=== PATIENT | female | born 1995 | race Caucasian/White ===

== ENCOUNTER 2019-01-23 20:15 | Emergency (ER) | payer MEDICAID, SELFPAY ==
[2019-01-23 20:21] VITALS: BP 99/56; PULSE 105; RESP 18; TEMP 36.8; O2SAT 99
--- NOTE | 2019-01-23 20:39 | W.ED.GENAD ---
Discharge Plan Disposition Patient Disposition: HOME Condition: Fair Discharge Details Chief Complaint: Abd Prob Clinical Impression: Gastroenteritis Primary Care Provider: Mera Cedeno ED Provider: Caitlyn Mendieta Home Meds and New Rx's Prescriptions: Continued oseltamivir [Tamiflu] 75 MG capsule 75 mg PO Q12H Qty: 9 RF: 0 ondansetron HCl [Zofran] 4 mg Tablet 4 mg PO QID PRNRF: 0 Discharge Instructions Instructions: Gastroenteritis (ED) Additional Instructions: Encourage hydration. Please continue with Tylenol as needed for discomfort. Please follow-up with primary care this week for reevaluation. If you develop fever/chills, inability to tolerate fluids, increased pain or the new/worsening symptoms please seek care urgently once again. Referrals: Mera Cedeno [Primary Care Provider] - Medical Decision Making Patient is a 23-year-old female, accompanied by significant other, with chief complaint of nausea, vomiting, dominant diarrhea, abdominal pain. She reports the pain is intermittent and occurs every half an hour. Reports that it feels like labor pains. States that the pain is fairly diffuse across the abdomen. She was seen at 2:00 this afternoon at [facility] emergency department patient was hydrated, given Zofran labs reviewed. Patient did not undergo imaging which is where she is concerned there is something more serious and abdominally was noted by them. Patient was diagnosed with gastritis per the report. Patient denies any recent travel. No recent antibiotics. Patient is not immunocompromised. On exam, patient appears nontoxic. Her abdomen is bening with no peritoneal findings. No tenderness on exam. Patient slightly tachycardic at 105. Discussed with the patient is diagnosed advised to continue with symptomatic management this time. However, patient is very concerned that there is more serious pathology given the severity of the pain. She reports that while her abdomen is benign at this time the pain greatly increases and she is particularly concerned about appendicitis. We discussed risk/benefits of imaging. I did discuss this in depth with the patient she feels very strongly that we should move forward with imaging at this time. Medical records from visit today at [place] were obtained. Patient was noted to have a white count of 14.6. She is not anemic. Sodium was normal, potassium was minimally low at 3.5. BUN 13, creatinine 1.48. Liver enzymes within normal limits. Anion gap slightly elevated at 13, lipase within normal range, qualitative hCG negative. Patient has large amount of ketones in the urine, large amount of RBCs. Patient is currently menstruating. Pain no bacteria were noted. Patient was diagnosed with gastritis and ODT Zofran was prescribed. She received 1 L of fluids. Patient also received Tylenol and Toradol and reported resolution of her symptoms at the time of discharge. This patient was evaluated for few hours ago, I do not feel that repeat laboratory evaluation is necessary. However, given the severity of the patient's discomfort, we will move forward with imaging. Patient I again, discussed the risk and benefits of CT imaging. She voiced understanding and wishes to proceed. Patient has been asymptomatic while here. No recurrence of N/V/D. No abdominal pain. CT reviewed by radiologist: FINDINGS: Liver: Normal. No mass. Gallbladder and bile ducts: Multiple small calcified gallstones. Pancreas: Normal. No ductal dilation. Spleen: Spleen is top normal in size. Adrenals: Normal. No mass. Kidneys and ureters: Normal. No hydronephrosis. Stomach and bowel: Fluid-filled top normal caliber small bowel loops in pelvis with air-fluid levels. Appendix: Appendix not demonstrated. Intraperitoneal space: There is a small amount of free intraperitoneal fluid present. No free intraperitoneal gas. Vasculature: Prominent periuterine veins bilaterally. Patent left renal vein without filling defects. It appears compressed between superior mesenteric artery and aorta. Prominent left gonadal vein. Main portal vein is normal in caliber without filling defects. Shape Lymph nodes: Scattered minimally prominent mesenteric lymph nodes in right lower quadrant and root of the mesentery. Bladder: Distended bladder. Reproductive: Intrauterine contraceptive device appears in satisfactory position. 2.6 cm left ovarian cyst. Bones/joints: No acute fracture. No dislocation. Soft tissues: Unremarkable. IMPRESSION: 1. Appendix not demonstrated. Ascites and prominent mesenteric lymph nodes may be axillary findings with the presence of appendicitis. 2. Pelvic congestion syndrome, at least in part due to compression of left renal vein between superior mesenteric artery and aorta. 3. Fluid-filled nondilated loops of bowel with air-fluid levels in pelvis, consistent with localized ileus. 4. Gallstones. 5. 2.6 cm left ovarian cyst. 6. Spleen is top normal in size. Discussed findings with Dr. Santos. Her physical exam and history is not consistent with appendiciits. She does not endorse pelvic pain at this time as would be expected with pelvic congestion syndrome. Discussed cyst with the patient. Dr. Santos advised that this is concsistent with her hx of gastroenteritis. Patient remains asymptomatic. Taking in fluids at this time. She will continue with the zofran as previously prescribed. Was given strict return precautions. Advised she f/u with PCP next week for reevaluation. All questions and concerns were addressed, she is in agreement with this plan. HPI General Mode of arrival: ambulatory. Date/Time Provider Initiated Documentation: 01/23/19 20:39. Limitations to Documentation: no limitations. Information obtained by: patient, family (significant other) and RN notes reviewed. History of Present Illness 23 year old F presents to the emergency department with the chief complaint of severe abdominal pain, N/V/D, described as severe, with intensity rated at 4. Quality is described as stabbing, and is localized to the abdomen. Patient reports no radiation. Patient started experiencing this hour(s) (0200) and it has been intermittent. No relieving factors improve symptom(s), No exacerbating factors reported . Patient notes loss of appetite and nausea/vomiting; denies chest pain, cough, fever/chills, headaches, rash and shortness of breath. Patient did receive the following treatments prior to arrival, other (zofran) Related Data Home Medications Medication Instructions Recorded Confirmed oseltamivir [Tamiflu] 75 mg PO Q12H #9 cap 09/02/17 ondansetron HCl [Zofran] 4 mg PO QID PRN 01/23/19 01/23/19 Previous Rx's Medication Instructions Recorded oseltamivir [Tamiflu] 75 mg PO Q12H #9 cap 09/02/17 Allergies Allergy/AdvReac Type Severity Reaction Status Date / Time No Known Allergies Allergy Unverified 01/23/19 20:23 General Stated Complaint: Abd Prob ALBERTO: 3 Review of Systems Constitutional Reports as per HPI, Denies chills, Denies fatigue, Denies fever(s) and Denies headache(s) ENT Denies headache(s) Cardiovascular Reports as per HPI, Denies chest pain and Denies dyspnea Respiratory Reports as per HPI, Denies cough and Denies dyspnea Gastrointestinal Reports as per HPI Genitourinary Reports system reviewed and no additional complaints, except as docu (no change in urination, patient currently menstruating) Musculoskeletal Reports as per HPI and Denies back pain Integumentary/Breasts Reports as per HPI and Denies rash Neurologic Reports as per HPI and Denies headache(s) Endocrine Denies fatigue [facility] Social History Smoking/Tobacco Use Status: Never Alcohol Intake: current Alcohol Intake frequency: a few times a week Drug use: Never Do you feel safe at home: Yes Do you feel safe in your relationship?: Yes Exam Const General: cooperative, healthy appearing, comfortable, no acute distress and well developed Nutritional Appearance: average body habitus and well nourished Orientation: alert and awake HENMT Head: normal to inspection Mouth: moist mucous membranes Resp Effort & Inspection: normal respiratory effort, able to speak in complete sentences and no respiratory distress Auscultation: clear to auscultation bilaterally, no rales, no rhonchi and no wheezes Cardio Rate: regular rate Rhythm: regular rhythm Heart Sounds: S1 normal and S2 normal GI Inspection: normal to inspection, no edema, non-distended, no incisions, no obesity and no visible herniation Palpation: soft, no hepatosplenomegaly, not firm, no guarding, not rigid and nontender Percussion: normal to percussion Auscultation: normal bowel sounds Back/Spine/Pelvis Back: no CVA tenderness Skin General skin exam: no rashes or lesions noted Trauma: no lacerations or abrasions Neuro General: alert and awake Cognition: normal cognition Speech: speech normal Gait: normal gait Psych Appearance: grossly normal and well kempt Mental Status: mental status grossly normal Speech and Movement: speech and movement normal Course Vital Signs Temperature 36.8 C 01/23/19 20:21 Pulse 105 H 01/23/19 20:21 Respiratory Rate 18 01/23/19 20:21 Blood Pressure 99/56 L 01/23/19 20:21 Pulse Oximetry 99 01/23/19 20:21 Temperature 36.8 C 01/23/19 20:21 Pulse 105 H 01/23/19 20:21 Respiratory Rate 18 01/23/19 20:21 Respiratory Effort Non-Labored 01/23/19 20:22 Blood Pressure 99/56 L 01/23/19 20:21 Blood Pressure Position Supine 01/23/19 20:21 Pulse Oximetry 99 01/23/19 20:21 Oxygen Delivery Method Room Air 01/23/19 20:21 Oxygen Flow Rate 0 01/23/19 20:21 Pain Level 4 01/23/19 20:26
--- NOTE | 2019-01-23 21:24 | DI.CT_ITS ---
SYMPTOM/DIAGNOSIS: NAUSEA, VOMITING, DIARRHEA, SEVERE DIFFUSE ABD PAIN ABDOMEN AND PELVIC CT: CT scan of the abdomen and pelvis was performed following the uneventful administration of intravenous contrast material. There are no priors for comparison. The lung bases are clear. There is no evidence of a hepatic mass. The portal, superior mesenteric and splenic veins are patent. There are stones seen within the gallbladder. No biliary ductal dilatation. The pancreas and adrenal glands are unremarkable. The spleen is at the upper limits of normal in size. The kidneys show normal and symmetric enhancement. No evidence of a solid renal mass or obstruction. The urinary bladder is intact. There are increased periuterine veins. The findings raise the question of pelvic congestion syndrome. The aorta is of normal caliber. No significant abdominal or pelvic adenopathy or pneumoperitoneum is seen. There is a small amount of free fluid in the pelvis. No focal fluid collection is seen to suggest an abscess. Note is made of a 3 cm. left adnexal cystic lesion, likely ovarian. The appendix is not visualized. There are mildly dilated loops of fluid filled small bowel likely reflecting an ileus. IMPRESSION: 1. Findings of mildly dilated loops of small bowel with air fluid levels suggesting an ileus. 2. Cholelithiasis. No biliary ductal dilatation. 3. 3 cm. left ovarian cyst. If further imaging is warranted, pelvic ultrasound may be obtained. 4. Distended periuterine vessels suggesting pelvic congestion syndrome. 5. Appendix not visualized.
[2019-01-23] MEDS: Omnipaque 350 MG/ML 100 ML BTL IJ (21:50)
[2019-01-23] MEDS: Normal Saline 1,000 ML 1000 ML IV (21:52)
--- NOTE | 2019-01-23 22:27 | DI.VRAD_ITS ---
EXAM: CT Abdomen and Pelvis With Contrast EXAM DATE/TIME: 01/23/2019 9:24 PM CLINICAL HISTORY: 23 years old, female; Abdominal pain; Generalized; Patient HX: N/v/d, severe diffuse abd pain TECHNIQUE: Imaging protocol: Axial computed tomography images of the abdomen and pelvis with intravenous contrast. Coronal and sagittal reformatted images were created and reviewed. COMPARISON: No relevant prior studies available. FINDINGS: Liver: Normal. No mass. Gallbladder and bile ducts: Multiple small calcified gallstones. Pancreas: Normal. No ductal dilation. Spleen: Spleen is top normal in size. Adrenals: Normal. No mass. Kidneys and ureters: Normal. No hydronephrosis. Stomach and bowel: Fluid-filled top normal caliber small bowel loops in pelvis with air-fluid levels. Appendix: Appendix not demonstrated. Intraperitoneal space: There is a small amount of free intraperitoneal fluid present. No free intraperitoneal gas. Vasculature: Prominent periuterine veins bilaterally. Patent left renal vein without filling defects. It appears compressed between superior mesenteric artery and aorta. Prominent left gonadal vein. Main portal vein is normal in caliber without filling defects. Shape Lymph nodes: Scattered minimally prominent mesenteric lymph nodes in right lower quadrant and root of the mesentery. Bladder: Distended bladder. Reproductive: Intrauterine contraceptive device appears in satisfactory position. 2.6 cm left ovarian cyst. Bones/joints: No acute fracture. No dislocation. Soft tissues: Unremarkable. IMPRESSION: 1. Appendix not demonstrated. Ascites and prominent mesenteric lymph nodes may be axillary findings with the presence of appendicitis. 2. Pelvic congestion syndrome, at least in part due to compression of left renal vein between superior mesenteric artery and aorta. 3. Fluid-filled nondilated loops of bowel with air-fluid levels in pelvis, consistent with localized ileus. 4. Gallstones. 5. 2.6 cm left ovarian cyst. 6. Spleen is top normal in size. Dictated and Authenticated by: Angelo Schulte MD. Ordering:FRANCIA Brady MD
[2019-01-23 23:05] VITALS: BP 101/56; PULSE 94; RESP 16; TEMP 37; O2SAT 96
== END 2019-01-23 23:05 | disposition home or self-care (01) ==
PROVIDERS: Emergency Provider Physician Assistant; PCP Physician Assistant Medical
DX: K52.9 Noninfective gastroenteritis and colitis, unspecified (principal); N83.202 Unspecified ovarian cyst, left side; K80.20 Calculus of gallbladder without cholecystitis without obstruction
CPT/HCPCS: 96360; 99285; 74177; 99284; J3490

== ENCOUNTER 2019-07-19 10:09 | Emergency (ER) | payer MEDICAID, SELFPAY ==
[2019-07-19 10:16] VITALS: BP 108/91; PULSE 68; RESP 24; TEMP 36.6; O2SAT 99
[2019-07-19] MEDS: Normal Saline Flush 10 ML SYR IVP (10:30)
[2019-07-19] MEDS: Normal Saline 1,000 ML 1000 ML IV ×3 (10:35→12:35)
[2019-07-19] MEDS: Ondansetron 4 MG/2 ML VIAL (10:40)
--- NOTE | 2019-07-19 10:45 | ED.GENADUL_ITS ---
Discharge Plan Disposition Patient Disposition: HOME Condition: Stable Discharge Details Chief Complaint: Nausea/Vomit/Diar Clinical Impression: Gastroenteritis Primary Care Provider: Mera Cedeno ED Provider: Nanette Chandler Home Meds and New Rx's Prescriptions: New ondansetron HCl [Zofran] 4 mg tablet 4 mg PO Q6H PRN (Reason: nausea and vomiting) Qty: 7 RF: 0 Continued oseltamivir [Tamiflu] 75 MG capsule 75 mg PO Q12H Qty: 9 RF: 0 ondansetron HCl [Zofran] 4 mg Tablet 4 mg PO QID PRNRF: 0 Discharge Instructions Instructions: Gastroenteritis (ED) Additional Instructions: Drink plenty of fluids and get plenty of rest. Try bland foods such as bananas, rice, applesauce, toast or crackers. Alternate tylenol and motrin as needed and directed for pain. Take the Zofran as needed directed for nausea and vomiting. Follow-up with your primary care doctor in 1 week. Return immediately to the emergency department if you develop any worsening or concerning symptoms such as worsening fevers, pain, vomiting or diarrhea. Discharge Data Discharge Date/Time-TO BE ENTERED AT DEPARTURE: 07/19/19 15:08 Discharge Physician: Nanette Chandler Medical Decision Making 1040 -- 23-year-old female presents with vomiting and diarrhea since last night. Multiple episodes of green bile vomiting with the last few episodes blood-tinged and multiple symptoms of watery brown diarrhea with with the last few episodes mixed bright red blood. She states her daughter has been sick with similar symptoms. She denies fever, urinary symptoms, recent antibiotics or recent travel. Patient appears restless and hyperventilating. She is clutching her stomach stating she has nausea and cramps. Vitals within normal limits., Mildly soft BP. Afebrile. She appears nontoxic but uncomfortable. Abdomen is soft with minimal diffuse tenderness. Suspect most likely gastroenteritis. Will place an IV, bolus IV fluids, screening labs, urine test, urinalysis and give a dose of Zofran and Ativan. 1130 --patient states she feels much better. Nausea resolved, just complaining of body aches. Urine test negative. Bicarb 19. Anion gap 22. Creatinine 1.94. GFR 31. Glucose 163. Hemoglobin 19.7. T bili 3.6. She states her abdominal pain is completely resolved. Temp 100. Toradol given. Appears likely consistent with dehydration and gastroenteritis. Do not suspect another acute abdominal process at this time. We will plan for continued IV fluids and recheck BMP. 1430 --repeat BMP renal function now normalized. Anion gap significantly improved from 22 to 12. Bicarb down 2 points from 19 to 17. Results discussed with patient and discussed that we could continue fluids and recheck bicarb, but she is requesting to go home. She states she feels much better. Reassessment of abdomen soft and nontender. She denies any abdominal pain or nausea. Urinalysis notes 10-20 WBCs with few epis and few bacteria and negative nitrite. She had no urinary complaints and a normal white blood cell count. Will hold on treatment at this time and send for urine culture. Prescription for Zofran given. She was advised to follow-up with her primary care doctor for reevaluation and to return here immediately if worse for further evaluation or possible imaging at that time. Medical Records Medical records reviewed: Yes I reviewed the patient's medical records. Lab Data Lab results reviewed: Yes I reviewed the patient's lab results. Labs: 07/19/19 11:17 Urine - Reflex from Ua Urine Culture - Pending Laboratory Tests Range/Units 07/19/19 07/19/19 07/19/19 10:30 10:30 10:30 WBC (4.4-10.8) k/cumm 9.31 RBC (4.00-5.20) m/cumm 6.59 H Hgb (12.0-15.5) g/dL 19.7 H* Hct (36.0-46.0) % 54.6 H MCV (80-95) fL 82.9 MCH (27.0-33.0) pg 29.9 MCHC (32.0-36.0) g/dL 36.1 H RDW (11.7-14.6) % 12.9 Plt Count (130-400) x1000/uL 442 H MPV (8.0-11.0) fL 8.7 Immature Gran % % 0.3 Neutrophils % 86.2 Lymphocytes % 4.5 Monocytes % 8.7 Eosinophils % 0.1 Basophils % 0.2 Absolute Neutrophils (1.2-6.7) k/cumm 8.02 H Absolute Lymphocytes (1.2-3.4) k/cumm 0.42 L Absolute Monocytes (0.11-0.7) k/cumm 0.81 H Absolute Eosinophils (0.0-0.7) k/cumm 0.01 Absolute Basophils (0.0-0.2) k/cumm 0.02 Differential Comment Rbc morph reviewed RBC Morphology See below Polychromasia Present Sodium (136-145) mmol/L 144 Potassium (3.5-5.1) mmol/L 4.1 Chloride (98-107) mmol/L 102 Carbon Dioxide (21.0-32.0) mmol/L 19.1 L Anion Gap (3-11) mmol/L 22.9 H BUN (7-18) mg/dL 25 H Creatinine (0.55-1.02) mg/dL 1.94 H Estimated GFR/1.73 m2 (mL/min/1.73m2) 31.98 Glucose (74-106) mg/dL 163 H Calcium (8.5-10.1) mg/dL 10.6 H Total Bilirubin (0.2-1.0) mg/dL 3.6 H AST (15-37) U/L 27 ALT (14-59) U/L 31 Alkaline Phosphatase (46-116) U/L 78 Total Protein (6.4-8.2) g/dL 10.0 H Albumin (3.4-5.0) g/dL 5.4 H Lipase (73-393) U/L 95 Serum HCG, Qual Negative Urine Color (Yellow) Urine Clarity (Clear) Urine pH (5-8) Ur Specific [place] (1.005-1.025) Urine Protein (Negative) mg/dL Urine Ketones (Negative) mg/dL Urine Blood (Negative) Urine Nitrite (Negative) Urine Bilirubin (Negative) Urine Urobilinogen (Up TO 0.2) EU/dL Ur Leukocyte Esterase (Negative) Urine RBC (0-2) HPF Urine WBC (0-5) HPF Ur Epithelial Cells (Negative) HPF Urine Crystals (Negative) HPF Urine Bacteria (Negative) HPF Urine Casts (Negative) LPF Urine Mucus (Negative) Ur Culture Indicated? Urine Glucose (Negative) mg/dL Range/Units 01/06/20 01/06/20 11:17 14:00 WBC (4.4-10.8) k/cumm RBC (4.00-5.20) m/cumm Hgb (12.0-15.5) g/dL Hct (36.0-46.0) % MCV (80-95) fL MCH (27.0-33.0) pg MCHC (32.0-36.0) g/dL RDW (11.7-14.6) % Plt Count (130-400) x1000/uL MPV (8.0-11.0) fL Immature Gran % % Neutrophils % Lymphocytes % Monocytes % Eosinophils % Basophils % Absolute Neutrophils (1.2-6.7) k/cumm Absolute Lymphocytes (1.2-3.4) k/cumm Absolute Monocytes (0.11-0.7) k/cumm Absolute Eosinophils (0.0-0.7) k/cumm Absolute Basophils (0.0-0.2) k/cumm Differential Comment RBC Morphology Polychromasia Sodium (136-145) mmol/L 141 Potassium (3.5-5.1) mmol/L 3.8 Chloride (98-107) mmol/L 111 H Carbon Dioxide (21.0-32.0) mmol/L 17.7 L Anion Gap (3-11) mmol/L 12.3 H BUN (7-18) mg/dL 20 H Creatinine (0.55-1.02) mg/dL 0.84 D Estimated GFR/1.73 m2 (mL/min/1.73m2) >= 60.00 Glucose (74-106) mg/dL 107 H D Calcium (8.5-10.1) mg/dL 7.0 L Total Bilirubin (0.2-1.0) mg/dL AST (15-37) U/L ALT (14-59) U/L Alkaline Phosphatase (46-116) U/L Total Protein (6.4-8.2) g/dL Albumin (3.4-5.0) g/dL Lipase (73-393) U/L Serum HCG, Qual Urine Color (Yellow) Brown Urine Clarity (Clear) Cloudy Urine pH (5-8) 6.0 Ur Specific [place] (1.005-1.025) 1.020 Urine Protein (Negative) mg/dL 100 H Urine Ketones (Negative) mg/dL Trace H Urine Blood (Negative) Negative Urine Nitrite (Negative) Negative Urine Bilirubin (Negative) Moderate H Urine Urobilinogen (Up TO 0.2) EU/dL 1.0 H Ur Leukocyte Esterase (Negative) Trace H Urine RBC (0-2) HPF 3-5 H Urine WBC (0-5) HPF 10-20 H Ur Epithelial Cells (Negative) HPF Few Urine Crystals (Negative) HPF Negative Urine Bacteria (Negative) HPF Few Urine Casts (Negative) LPF Negative Urine Mucus (Negative) Moderate Ur Culture Indicated? Yes Urine Glucose (Negative) mg/dL Negative HPI General Mode of arrival: ambulatory . Date/Time Provider Initiated Documentation: 07/19/19 10:37 . Limitations to Documentation: no limitations . Information obtained by: patient . History of Present Illness 23 year old F presents to the emergency department with the chief complaint of vomiting and diarrhea, Patient started experiencing this hour(s) (12; since 10pm last night ) and it has been constant. No relieving factors improve symptom(s), No exacerbating factors reported . Patient notes nausea/vomiting; denies chest pain, cough, diaphoresis, fever/chills, headaches, loss of appetite, malaise, rash, seizure, shortness of breath, syncope and weakness. Patient did receive the following treatments prior to arrival, none Related Data Home Medications Medication Instructions Recorded Confirmed oseltamivir [Tamiflu] 75 mg PO Q12H #9 cap 09/02/17 ondansetron HCl [Zofran] 4 mg PO QID PRN 01/23/19 07/19/19 ondansetron HCl [Zofran] 4 mg PO Q6H PRN #7 tab 07/19/19 Previous Rx's Medication Instructions Recorded oseltamivir [Tamiflu] 75 mg PO Q12H #9 cap 09/02/17 ondansetron HCl [Zofran] 4 mg PO Q6H PRN #7 tab 07/19/19 Allergies Allergy/AdvReac Type Severity Reaction Status Date / Time No Known Allergies Allergy Unverified 07/19/19 10:23 General Stated Complaint: Nausea/Vomit/Diar ALBERTO: 3 Review of Systems All systems reviewed & are unremarkable except as noted in HPI and below Constitutional Constitutional: Reports as per HPI, Denies chills and Denies fever(s) Eyes Eyes: Denies blurry vision ENT Ears, Nose, Mouth, and Throat: Denies dizziness, Denies sore throat and Denies throat swelling Cardiovascular Cardiovascular: Denies chest pain and Denies dyspnea Respiratory Respiratory: Denies cough and Denies dyspnea Gastrointestinal Gastrointestinal: Reports abdominal pain, Reports diarrhea and Reports vomiting Genitourinary Genitourinary: Denies hematuria and Denies dysuria Musculoskeletal Musculoskeletal: Denies back pain and Denies numbness Integumentary/Breasts Skin/Breast: Denies lesions and Denies rash Neurologic Neurologic: Denies dizziness, Denies focal weakness and Denies numbness Allergic/Immunologic Allergic/Immunologic: Denies throat swelling PFSH Medical History Migraine (Chronic) Surgical History No significant past surgical history (Acute) Social History Smoking/Tobacco Use Status: Former Tobacco Use Alcohol Intake: current Alcohol Intake frequency: a few times a week Drug use: Never Details: quit smoking quite a while ago Do you feel safe at home: Yes Do you feel safe in your relationship?: Yes Exam Const General: cooperative, healthy appearing and no acute distress HENMT Head: normal to inspection Face and sinus: normal facial exam Eyes General: appearance normal, both eyes and all related structures Pupils: PERRL EOM: EOM intact bilaterally Neck Neck: normal visual inspection and No submandibular swelling Lymphatic: no lymphadenopathy noted Chest Chest: normal inspection of the chest and no tenderness Resp Effort & Inspection: normal respiratory effort and able to speak in complete sentences Auscultation: clear to auscultation bilaterally Cardio Rate: regular rate Rhythm: regular rhythm GI Inspection: normal to inspection Palpation: soft, not firm, no hepatosplenomegaly, no masses, no pulsatile masses, not rigid and tender (minimally diffuse) Auscultation: normal bowel sounds Skin General skin exam: no rashes or lesions noted Neuro General: alert, awake and oriented x3 Cognition: normal cognition Speech: speech normal Motor: muscle tone normal throughout Sensory Exam: no sensory deficits noted Extrem General: normal to inspection, full ROM, normal capillary refill, no calf tenderness bilaterally and no edema Psych Appearance: grossly normal Mental Status: mental status grossly normal Speech and Movement: speech and movement normal Affect: normal affect Course Vital Signs Vital signs: Vital Signs Temperature 97.9 F 07/19/19 10:16 Pulse 68 07/19/19 10:16 Respiratory Rate 24 07/19/19 10:16 Blood Pressure 108/91 H 07/19/19 10:16 Pulse Oximetry 99 07/19/19 10:16 Temperature 97.9 F 07/19/19 10:16 Temperature Source Skin 07/19/19 10:16 Pulse 68 07/19/19 10:16 Respiratory Rate 24 07/19/19 10:16 Blood Pressure 108/91 H 07/19/19 10:16 Pulse Oximetry 99 07/19/19 10:16 Oxygen Delivery Method Room Air 07/19/19 10:16 Oxygen Flow Rate 0 07/19/19 10:16 Pain Level 7 07/19/19 10:40 Comment taking tylenol at home but can't keep it down 07/19/19 10:16
[2019-07-19] MEDS: LORazepam 2 MG/ML VIAL 0.5 MG IVP (10:49)
[2019-07-19 11:24] LABS: ALT 31 U/L (14-59); AST 27 U/L (15-37); Albumin 5.4 g/dL (3.4-5.0); Alkaline Phosphatase 78 U/L (46-116); Anion Gap 22.9 mmol/L (3-11); BUN 25 mg/dL (7-18); Bilirubin, Total 3.6 mg/dL (0.2-1.0); CO2 19.1 mmol/L (21.0-32.0); CREATININE 1.94 mg/dL (0.55-1.02); Calcium 10.6 mg/dL (8.5-10.1); Chloride 102 mmol/L (98-107); Estimated GFR 31.98 (mL/min/1.73m2); Glucose 163 mg/dL (74-106); Lipase 95 U/L (73-393); Potassium 4.1 mmol/L (3.5-5.1); Sodium 144 mmol/L (136-145)
[2019-07-19 11:27] LABS: Bilirubin Moderate (Negative); Blood Negative (Negative); Clarity Cloudy (Clear); Glucose Negative (Negative); Ketones Trace mg/dL (Negative); Leukocyte Esterase Trace (Negative); Nitrite Negative (Negative)
[2019-07-19 11:31] LABS: Abs Immature Grans 0.03 k/cumm (0.0-0.09); Absolute Basophil Count 0.02 k/cumm (0.0-0.2); Absolute Eosinophil Count 0.01 k/cumm (0.0-0.7); Absolute Lymphocyte Count 0.42 k/cumm (1.2-3.4); Absolute Monocyte Count 0.81 k/cumm (0.11-0.7); Absolute Neutrophil Count 8.02 k/cumm (1.2-6.7); Basophils % 0.2; Eosinophils % 0.1; HCT 54.6 % (36.0-46.0); Immature Grans % 0.3 %; Lymphocytes % 4.5; Mean Corp. HGB Concentration 36.1 g/dL (32.0-36.0); Mean Corpuscular Hemoglobin 29.9 pg (27.0-33.0); Mean Corpuscular Volume 82.9 fL (80-95); Mean Platelet Volume 8.7 fL (8.0-11.0); Monocytes % 8.7; Neutrophils % 86.2; Platelet Count 442 x1000/uL (130-400); RBC 6.59 m/cumm (4.00-5.20); RBC Distribution Width 12.9 % (11.7-14.6); White Blood Cell Count 9.31 k/cumm (4.4-10.8)
[2019-07-19 11:52] LABS: Bacteria Few HPF (Negative); C & S Indicated? Yes; Casts Negative LPF (Negative); Crystals Negative HPF (Negative); Epithelial Cells Few HPF (Negative); Mucus Moderate (Negative)
[2019-07-19 11:59] LABS: HGB 19.7 g/dL (12.0-15.5)
[2019-07-19 12:02] LABS: Diff Comment RBC Morph Reviewed; Polychromasia Present
[2019-07-19 12:05] LABS: HCG Qual (Serum) Negative
[2019-07-19 12:59] VITALS: BP 154/84; PULSE 114; RESP 18; TEMP 37.8; O2SAT 100
[2019-07-19] MEDS: Ketorolac 30 MG/ML VIAL IVP (13:29)
[2019-07-19 13:59] VITALS: TEMP 37.7
[2019-07-19 14:33] LABS: Anion Gap 12.3 mmol/L (3-11); BUN 20 mg/dL (7-18); CO2 17.7 mmol/L (21.0-32.0); CREATININE 0.84 mg/dL (0.55-1.02); Chloride 111 mmol/L (98-107); Glucose 107 mg/dL (74-106); Potassium 3.8 mmol/L (3.5-5.1); Sodium 141 mmol/L (136-145)
[2019-07-19 14:59] VITALS: BP 90/45; PULSE 107; RESP 18; TEMP 37.7; O2SAT 97
[2019-07-19 15:01] VITALS: BP 90/52
== END 2019-07-19 15:08 | disposition home or self-care (01) ==
PROVIDERS: Emergency Provider Physician Assistant; PCP Physician Assistant Medical
DX: K52.9 Noninfective gastroenteritis and colitis, unspecified (principal); E86.0 Dehydration
CPT/HCPCS: 36415; 80048; 80053; 81025; 83690; 87077; 96361; 96374; 96375; 99284; 81003; 81015; 84703; 85025; 87086; J1885; J2060; J2405